=== PATIENT | female | born 1985 | race Two or more races ===

== ENCOUNTER 2024-03-12 09:44 | Emergency (ER) | payer MEDICAID, SELFPAY ==
[2024-03-12 10:06] VITALS: BP 137/81; PULSE 86; RESP 18; TEMP 36.7; O2SAT 98; BMI 23.3
[2024-03-12 11:57] LABS: HCG Qualitative,Urine Negative
--- NOTE | 2024-03-12 12:04 | PD.EDADULT ---
ED General RME/HPI General Chief complaint: General Adult/Misc Complain Stated complaint: WANTS TEST Time Seen by Provider: 03/12/24 09:47 Arrival date/time: 03/12/24 09:44 38-year-old female presents emergency department today requesting test patient reports that previously with her she has had bodyaches and headaches patient reports that she has similar symptoms to this ongoing x 1 day Limitations: no limitations Related Data Home Medications ?Medication ?Instructions ?Recorded ?Confirmed ferrous sulfate 325 mg (65 mg 325 mg PO BID 05/16/22 08/19/22 iron) tablet (iron) prenat.vits,saranya,[id number] 1 tab PO QDAY 05/16/22 08/19/22 Allergies Allergy/AdvReac Type Severity Reaction Status Date / Time Fish Containing Products Allergy Severe facial Verified 03/12/24 09:46 swelling Review of Systems Review of Systems Systems Reviewed: All systems reviewed, normal except as documented Constitutional Constitutional: Reports system reviewed and no additional complaints, except as documented, Reports body ache(s), Denies fever(s) and Denies headache(s) Eyes Eyes: Reports system reviewed and no additional complaints, except as documented and Denies blurry vision ENT Ears, Nose, Mouth, and Throat: Reports system reviewed and no additional complaints, except as documented, Denies headache(s), Denies nasal congestion and Denies nasal discharge Cardiovascular Cardiovascular: Reports system reviewed and no additional complaints, except as documented, Denies chest pain and Denies dyspnea Respiratory Respiratory: Reports system reviewed and no additional complaints, except as documented, Denies chest congestion, Denies cough and Denies dyspnea Gastrointestinal Gastrointestinal: Reports system reviewed and no additional complaints, except as documented, Denies abdominal pain and Reports cramping Integumentary/Breasts Skin/Breast: Reports system reviewed and no additional complaints, except as documented and Denies rash Neurologic Neurologic: Reports system reviewed and no additional complaints, except as documented, Reports as per HPI and Denies headache(s) Past Medical History Past Medical History NEUROLOGIC: Negative Neurological Disorders CARDIAC: Negative Cardiac Disorders or Congestive Heart Failure RESPIRATORY: Negative Chronic Obstructive Pulmonary Disease (COPD) GASTROINTESTINAL: Negative Gastrointestinal Disorders, Hepatitis or Colorectal Cancer GENITOURINARY: Negative Genitourinary Disorders, Renal Disease or Prostate Cancer REPRODUCTIVE: Positive Previous Pregnancies; Negative Breast Cancer, Endometriosis, Pelvic Inflammatory Disease, Testicular Cancer or Uterine Prolapse MUSCULOSKELETAL: Negative Musculoskeletal Disorders or Bone Cancer ENDOCRINE: Negative Endocrine Disorders, Diabetes Mellitus Type 1 or Diabetes Mellitus Type 2 HEMATOLOGIC: Positive Anemia; Negative Blood Disorders OTHER HISTORY: Positive Chicken Pox; Negative Hospitalization, Autoimmune Disease, Down Syndrome, Developmental Delay, Shingles, Falls, Blood Transfusions, Blood Transfusion Reaction, Anesthesia Reactions, Organ Transplant, Chemotherapy, Radiation Therapy, Hyperbaric Therapy, MRSA, VRSA, Vancomycin-Resistant Enterococci, Human Immunodeficiency Virus (HIV), Measles, Mumps, Rubella ([place] Measles), Pertussis, Clostridium Difficile, Cancer, Breast Cancer, Cervical Cancer, Colorectal Cancer, Lung Cancer, Ovarian Cancer, Prostate Cancer or Testicular Cancer Family History FAMILY HISTORY: Positive Family Psychiatric Problems (son-autism. ADH); Negative Family Respiratory Disorders, Family Cardiac Disorders, Family Gastrointestinal Problems, Family Cancer, Family Surgery or Family Anesthesia Reaction Surgical History SURGICAL: Negative Section or Organ Transplant Social History SMOKING STATUS: Never smoker SUBSTANCE USE: marijuana ED Exam General Limitations: Present no limitations General appearance: Present alert and in no apparent distress Head Head exam: Present atraumatic Eye Eye exam: Present normal appearance, PERRL and EOMI ENT ENT exam: Present normal exam, normal oropharynx and mucous membranes moist Neck Neck exam: Present normal inspection, full ROM and trachea midline Chest Chest inspection: Present normal inspection and symmetric chest wall rise Respiratory Respiratory exam: Present normal lung sounds bilaterally Cardiovascular Cardiovascular exam: Present regular rate, normal rhythm and normal heart sounds Abdominal Exam Abdominal exam: Present soft and normal bowel sounds; Absent distention, tenderness, guarding, rebound or rigidity Extremities Exam Extremities exam: Present normal inspection and full ROM Back Exam Back exam: Present normal inspection and full ROM Neurological Exam Neurological exam: Present alert, oriented X3, CN II-XII intact, normal gait and reflexes normal; Absent motor sensory deficit Psychiatric Psychiatric exam: Present normal affect and normal mood Skin Skin exam: Present warm, dry, intact and normal color; Absent rash Course Quality Measures none Orders Category Date Time Status HCG Qualitative,Urine Stat Lab 03/12/24 11:20 Completed Vital Signs Vital signs: Vital Signs Temperature 98.1 F 03/12/24 10:06 Pulse Rate 86 03/12/24 10:06 Respiratory Rate 18 03/12/24 10:06 Blood Pressure 137/81 H 03/12/24 10:06 Pulse Oximetry (%) 98 03/12/24 10:06 Oxygen Delivery Method Room Air 03/12/24 10:06 O2 saturation 98% room air within normal limits MDM Patient data External records reviewed:: [facility] previous records Clinical information provided by:: patient Social determinants that could affect healthcare access:: none Patient has the following chronic illnesses:: none How is presenting disease/condition affected by chronic disease/condition?: no chronic disease Evaluation data The following diagnostics were reviewed and interpreted by me:: lab results Lab and/or radiology exams considered but not ordered:: Labs obtained Interpretation Summary: Reviewed by me Medications Medications considered but not ordered:: No meds Medication administrations:: No meds Consultations Consultation(s) initiated? (list below): No Diagnosis Differential Diagnosis ED Complaint MDM: Viral illness, body aches, Most likely diagnosis given after review of the tests above:: Viral illness Admission Indicated Admission indicated?: not indicated Explain why admission is indicated or not indicated:: No criteria Admission Request Was there a request for admission?: No Disposition Plan Disposition Plan: Discharge Discharge Attestation Discharge Attestation: The patient and all family members were given an opportunity to ask questions and understood the discharge instructions. Discharge instructions specifically effects, indications for sooner follow up or return to the emergency department, and the expected course of current diagnosis. Patient condition: Stable Medical Decision Making MDM Narrative MDM Narrative: 38-year-old female presents emergency department today requesting test patient reports that previously with her she has had bodyaches and headaches patient reports that she has similar symptoms to this ongoing x 1 day On exam patient well-appearing patient does not appear ill or toxic and no acute distress test obtained patient is not per urine hCG Patient discharged home in no distress to follow-up with primary care doctor in the next 24 to 48 hours and for any worsening symptoms to return to the ER immediately Differential Diagnosis Differential Diagnosis: Viral illness, body aches, Medical Records Medical records reviewed: Yes I reviewed the patient's medical records. Lab Data Lab results reviewed: Yes I reviewed the patient's lab results. Labs: Lab Results 03/12/24 Range/Units 11:20 Urine HCG, Qual Negative Discharge Plan Plan Patient Disposition: HOME (Self Care) Disposition Comment: Stable Prescriptions/Referrals Prescriptions/Med Rec: No Action ferrous sulfate [iron] 325 mg (65 mg iron) Tablet 325 mg PO BID Vitamin Tablet 1 tab PO QDAY Referrals: Pipo Henriquez MD [Primary Care Provider] - 03/14/24 Problem List Clinical Impression: Body aches, Negative test Patient/Caregiver Discharge Instructions Education Materials: Measuring Your Pain Additional Instructions: Please follow up with your primary care doctor in the next 24-48hrs for any worsening symptoms return here immediately Print Language: Estonian Stand Alone Forms: Raissa Award Info., Patient Portal Info Letter PA/CAP SEWER Supervising Physician PA/NATALI Supervising Physician: Dr juárez
== END 2024-03-12 12:30 | disposition home or self-care (01) ==
PROVIDERS: Nurse Practitioner Primary Care; Emergency Provider Emergency Medicine; PCP Family Medicine
DX: Z32.02 Encounter for pregnancy test, result negative (principal); R52 Pain, unspecified
CPT/HCPCS: 81025; 99283

== ENCOUNTER 2024-03-29 22:57 | Emergency (ER) | payer MEDICAID, SELFPAY ==
[2024-03-29 22:58] VITALS: BMI 23.3
[2024-03-30 00:16] VITALS: BP 130/69; PULSE 79; RESP 16; TEMP 36.8; O2SAT 100
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
[2024-03-30] MEDS: DEXAMETHASONE SOD PHOS INJ 10 MG/ML VIAL PO (00:33)
[2024-03-30] MEDS: FLUORESCEIN SOD 1 MG STRP LEFT EYE (00:33)
[2024-03-30] MEDS: TETRACAINE PF OP SOL 0.5% 4 ML DRPETTE 1 DROP LEFT EYE (00:33)
[2024-03-30] MEDS: Erythromycin Op Oint 0.5% 1 GM PACKET LEFT EYE (01:19)
== END 2024-03-30 01:21 | disposition home or self-care (01) ==
LOC: SERX 03-30 03:33
PROVIDERS: Emergency Provider Emergency Medicine; PCP Family Medicine
DX: S05.02XA Injury of conjunctiva and corneal abrasion without foreign body, left eye, initial encounter (principal); X58.XXXA Exposure to other specified factors, initial encounter
CPT/HCPCS: 99283; J1100; A9270

== ENCOUNTER 2024-10-13 08:20 | Emergency (ER) | payer MEDICAID, SELFPAY ==
[2024-10-13 09:00] VITALS: BP 120/89; PULSE 87; RESP 18; TEMP 37.1; O2SAT 100; BMI 22.1
--- NOTE | 2024-10-13 09:08 | XR_ITS ---
Examination: Knee, left , 3 views Technique: Knee AP, lateral, oblique 3 views Date and time of exam: October 13, 2024 0908 hours INDICATIONS: Patient fell today with injury to the knee, knee pain. FINDINGS: Mild osteopenia. No fracture or dislocation. Moderate knee effusion IMPRESSION: No fracture or dislocation
[2024-10-13] MEDS: HYDROcodone/APAP 5/325 TABLET 1 TAB PO (09:18)
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
== END 2024-10-13 10:10 | disposition home or self-care (01) ==
PROVIDERS: Emergency Provider Emergency Medicine; PCP Family Medicine
DX: M25.562 Pain in left knee (principal)
CPT/HCPCS: 73562; 99283; A9270